=== PATIENT | female | born 1990 | race Caucasian/White ===

== ENCOUNTER → 2017-05-01 | Outpatient (CLI) | payer OTHER ==
--- NOTE | 2017-05-01 15:48 | FL ---
EXAMINATION TYPE: FL hysterosalpingography DATE OF EXAM: 05/01/2017 HISTORY: Infertility. PROCEDURE/FINDINGS: 1 minute and 56 seconds of fluoroscopy time was utilized with a total of 25 mL of Omnipaque 240 injected and 4 fluoroscopic images saved. Informed consent was obtained and all the patient's questions were answered. Preliminary film of the pelvis reveals no distinct abnormality within the pelvis with incidental note of postsurgical changes of the lumbosacral spine. Betadine was used to cleanse the external skin surface. A speculum was introduced and the external c ervical os was localize. Hysterosalpingography catheter was attempted to be introduced into the uter us and balloon insufflation device deployed although the catheter would not fully extend through the cervical canal. Attempted injection demonstrated contrast within the vaginal cuff spilling through th e cervix in a retrograde fashion on 2 occasions. Subsequently a sound dilator was used to penetrate a dhesions within the cervix and the hysterosalpingography catheter was advanced successfully through t he internal cervical os. Initially no spill was seen of either fallopian tubes after instillation of approximately 5 cc of contrast. The remaining 5 cc of contrast was injected briskly with quick fill o f the fallopian tubes bilaterally and bilateral spill into the peritoneal cavity. Both fallopian tub es are therefore patent. The uterus has a normal size shape and appearance. No persistent uterine fi lling defects are seen. IMPRESSION: A sound dilator was necessary to breakthrough adhesions and extend through the internal c ervical os with eventual bilateral spill of contrast into the peritoneal cavity indicating patency of the fallopian tubes.
== END | disposition home or self-care (01) ==
LOC: RADFLMAIN 13:28
PROVIDERS: ATTEND Obstetrics & Gynecology
DX: N97.9 Female infertility, unspecified (principal); Z88.0 Allergy status to penicillin; Z88.1 Allergy status to other antibiotic agents
CPT/HCPCS: 58340; 74740; Q9966

== ENCOUNTER 2017-12-01 19:54 | Observation (INO) | payer OTHER ==
[2017-12-01] MEDS ORDERED: IPRATROPIUM-ALBUTEROL 3 ML NEB INHALATION STA (20:38)
[2017-12-01] MEDS ORDERED: IPRATROPIUM-ALBUTEROL 3 ML NEB INHALATION PRN (20:40)
[2017-12-01] MEDS ORDERED: SODIUM CHLORIDE 0.9% 1,000 ML IV ONE (20:42)
[2017-12-01] MEDS ORDERED: SODIUM CHLORIDE 0.9% 1,000 ML IV SCH (20:45)
[2017-12-01] MEDS ORDERED: VANCOMYCIN IV PER PHARMACY 1 EACH MISC MISCELLANE PRN (20:53)
[2017-12-01] MEDS ORDERED: DOXYCYCLINE 100 MG CAP PO STA (20:58)
--- NOTE | 2017-12-01 21:03 | ED ---
General Adult HPI - General Chief complaint: Shortness of Breath Stated complaint: Sepsis, Asthma Time Seen by Provider: 12/01/17 20:25 Source: patient, EMS, RN notes reviewed, old records reviewed Mode of arrival: EMS Limitations: no limitations - History of Present Illness Initial comments: 26 female presenting for evaluation of asthma exacerbation and sepsis with lactic acidosis. Patient's complains of 4 days of URI symptoms including sore throat, cough which is productive of green sputum. She has remote history of asthma. Denies fever or chills. Denies abdominal pain. Denies lower extremity pain or swelling. She is not currently on control. She was transferred with both lactic acidosis of 5.9 and need for treatment of asthma exacerbation. Patient denies abdominal pain. Denies nausea vomiting. - Related Data Home Medications Medication Instructions Recorded Confirmed ALPRAZolam [Xanax] 0.25 mg PO DAILY PRN 12/01/17 12/01/17 Albuterol Inhaler [Ventolin Hfa 1 - 2 puff INHALATION RT-Q6H PRN 12/01/17 Inhaler] Aspirin EC [Ecotrin Low Dose] 81 mg PO HS 12/01/17 12/01/17 Cetirizine HCl [Zyrtec] 10 mg PO HS 12/01/17 12/01/17 Glucosamine/Chondr Mercer A Sod [Osteo 1 tab PO HS 12/01/17 12/01/17 Bi-Flex Caplet] Nicotine 7Mg/24Hr Patch [Habitrol 1 patch TRANSDERM DAILY 12/01/17 12/01/17 7Mg/24Hr Patch] Delmar-3 Fatty Acids [Delmar-3] 1,000 mg PO HS 12/01/17 12/01/17 metFORMIN HCL [Glucophage] 250 mg PO HS 12/01/17 12/01/17 Allergies Allergy/AdvReac Type Severity Reaction Status Date / Time ciprofloxacin [From Cipro] Allergy Rash/Hives Verified 12/01/17 20:20 Penicillins Allergy Rash/Hives Verified 12/01/17 20:20 azithromycin [From Zithromax] AdvReac Rapid Verified 12/01/17 20:20 Heart Rate Review of Systems ROS Statement: Those systems with pertinent positive or pertinent negative responses have been documented in the HPI. ROS Other: All systems not noted in ROS Statement are negative. Past Medical History Past Medical History: Asthma Additional Past Medical History / Comment(s): PCOS, MTHFR History of Any Multi-Drug Resistant Organisms: None Reported Additional Past Surgical History / Comment(s): Lumbar Fusion Past Psychological History: Anxiety, Depression Smoking Status: Current every day smoker Past Alcohol Use History: Rare Past Drug Use History: None Reported General Exam Limitations: no limitations General appearance: alert, in no apparent distress Head exam: Present: atraumatic, normocephalic Eye exam: Present: normal appearance, PERRL, EOMI ENT exam: Present: normal exam Neck exam: Present: normal inspection. Absent: tenderness, meningismus Respiratory exam: Present: respiratory distress (mild), wheezes, rhonchi, prolonged expiratory Cardiovascular Exam: Present: normal rhythm, tachycardia GI/Abdominal exam: Present: soft. Absent: distended, tenderness, guarding Extremities exam: Present: normal inspection, normal capillary refill. Absent: pedal edema, calf tenderness Neurological exam: Present: alert, oriented X3, CN II-XII intact. Absent: motor sensory deficit Skin exam: Present: warm, dry, intact. Absent: cyanosis, diaphoretic Course Vital Signs 12/01/17 12/01/17 20:06 20:23 Temperature 98.5 F Pulse Rate 112 H Respiratory 18 18 Rate Blood Pressure 121/63 O2 Sat by Pulse 98 Oximetry Medical Decision Making - Medical Decision Making 26 female with signs and symptoms of upper respiratory tract infection and asthma exacerbation transferred for further evaluation treatment of asthma exacerbation and concern for sepsis given the high lactic acidosis of 5.9. Patient's laboratory studies from outside hospital are reviewed, she has a white blood cell count of 17.9, hemoglobin stable, white lites within normal limits, urinalysis and urine tests are negative, d-dimer was 0.29 which is normal. Troponin negative. Chest x-ray was interpreted as negative, this imaging will be loaded but has not been reviewed by myself. Patient given a dose of broad-spectrum antibiotics prior to transfer. She was also given IV hydration and treatment for asthma exacerbation. She will be continued on treatment for reactive airway disease and asthma exacerbation. Laboratory studies will be repeated including lactic acidosis. She is also started on doxycycline given her multiple drug ALLERGIES. Repeat laboratory studies pending, repeat chest x-ray will be obtained in the morning. - Lab Data Result diagrams: 12/01/17 21:20 12/01/17 21:20 Lab Results 12/01/17 12/01/17 12/01/17 Range/Units 21:20 21:20 21:20 WBC 18.7 H (3.8-10.6) k/uL RBC 4.23 (3.80-5.40) m/uL Hgb 13.5 (11.4-16.0) gm/dL Hct 39.0 (34.0-46.0) % MCV 92.3 (80.0-100.0) fL MCH 31.8 (25.0-35.0) pg MCHC 34.5 (31.0-37.0) g/dL RDW 12.0 (11.5-15.5) % Plt Count 304 (150-450) k/uL Neutrophils % 97 % Lymphocytes % 2 % Monocytes % 1 % Eosinophils % 0 % Basophils % 0 % Neutrophils # 18.2 H (1.3-7.7) k/uL Lymphocytes # 0.4 L (1.0-4.8) k/uL Monocytes # 0.2 (0-1.0) k/uL Eosinophils # 0.0 (0-0.7) k/uL Basophils # 0.0 (0-0.2) k/uL Sodium 140 (137-145) mmol/L Potassium 4.3 (3.5-5.1) mmol/L Chloride 114 H (98-107) mmol/L Carbon Dioxide 16 L (22-30) mmol/L Anion Gap 10 mmol/L BUN 8 (7-17) mg/dL Creatinine 0.55 (0.52-1.04) mg/dL Est GFR (CKD-EPI)AfAm >90 (>60 ml/min/1.73 sqM) Est GFR (CKD-EPI)NonAf >90 (>60 ml/min/1.73 sqM) Glucose 130 H (74-99) mg/dL Plasma Lactic Acid Neo 1.5 (0.7-2.0) mmol/L Calcium 8.8 (8.4-10.2) mg/dL Total Bilirubin 0.5 (0.2-1.3) mg/dL AST 29 (14-36) U/L ALT 36 (9-52) U/L Alkaline Phosphatase 71 (38-126) U/L Total Protein 6.7 (6.3-8.2) g/dL Albumin 4.1 (3.5-5.0) g/dL Disposition Clinical Impression: Asthma with exacerbation, Bronchitis, Lactic acidosis, Dehydration Disposition: ADMITTED IP TO THIS [facility] Condition: Stable Is patient prescribed a controlled substance at d/c from ED?: No Referrals: Bentley Harrison MD [Primary Care Provider] - 1-2 days Decision to Admit Reason: Admit from EC Decision Date: 12/01/17 Decision Time: 21:06
[2017-12-01] MEDS ORDERED: VANCOMYCIN 1,500 MG in SODIUM CHLORIDE 0.9% 250 ML IVPB ONE (21:30)
[2017-12-01 21:32] LABS: Basophils % (A) 0 %; Eosinophils % (A) 0 %; HGB 13.5 gm/dL (11.4-16.0); Lymphocytes # (A) 0.4 k/uL (1.0-4.8); Lymphocytes % (A) 2 %; MCH 31.8 pg (25.0-35.0); MCHC 34.5 g/dL (31.0-37.0); MCV 92.3 fL (80.0-100.0); Mean Platelet Volume 6.6; Monocytes # (A) 0.2 k/uL (0-1.0); Monocytes % (A) 1 %; Neutrophils # (A) 18.2 k/uL (1.3-7.7); Neutrophils % (A) 97 %; Platelet Count 304 k/uL (150-450); RBC 4.23 m/uL (3.80-5.40); WBC 18.7 k/uL (3.8-10.6)
[2017-12-01 21:44] LABS: ALT 36 U/L (9-52); AST 29 U/L (14-36); Albumin 4.1 g/dL (3.5-5.0); Alkaline Phosphatase 71 U/L (38-126); Anion Gap 10 mmol/L; Blood Urea Nitrogen 8 mg/dL (7-17); Calcium 8.8 mg/dL (8.4-10.2); Carbon Dioxide 16 mmol/L (22-30); Chloride 114 mmol/L (98-107); Glucose 130 mg/dL (74-99); Potassium 4.3 mmol/L (3.5-5.1); Sodium 140 mmol/L (137-145); Total Bilirubin 0.5 mg/dL (0.2-1.3); Total Protein 6.7 g/dL (6.3-8.2)
[2017-12-01] MEDS: DOXYCYCLINE 100 MG CAP PO SCH (21:56)
[2017-12-01] MEDS: methylPREDNISolone SOD SUCCI 125 MG/2 ML VIAL IV SCH (23:33)
[2017-12-01 23:44] VITALS: BMI 28.3
[2017-12-02] MEDS ORDERED: ALPRAZolam 0.25 MG TAB PO PRN (02:05)
[2017-12-02] MEDS ORDERED: LORATADINE 10 MG TAB PO SCH (02:15)
[2017-12-02] MEDS ORDERED: ASPIRIN 81 MG PO SCH ×2 (02:17→21:00)
[2017-12-02] MEDS: ACETAMINOPHEN TAB 325 MG TAB PO PRN ×2 (02:22→08:29)
[2017-12-02] MEDS: guaiFENesin-DM 100-10MG/5ML 10 ML CUP PO PRN ×2 (02:23→09:11)
[2017-12-02] MEDS: methylPREDNISolone SOD SUCCI 125 MG/2 ML VIAL IV SCH ×2 (05:56→11:45)
[2017-12-02] MEDS ORDERED: VANCOMYCIN 1,500 MG in SODIUM CHLORIDE 0.9% 250 ML IVPB SCH (06:00)
[2017-12-02] MEDS: IPRATROPIUM-ALBUTEROL 3 ML NEB INHALATION SCH ×2 (06:17→10:49)
--- NOTE | 2017-12-02 08:17 | XR ---
EXAMINATION TYPE: XR chest 2V DATE OF EXAM: 12/02/2017 COMPARISON: Prior chest x-ray 12/01/2017 HISTORY: Cough TECHNIQUE: Frontal and lateral views of the chest are obtained. FINDINGS: There is no focal air space opacity, pleural effusion, or pneumothorax seen. The cardiac silhouette size is within normal limits. The osseous structures are intact. There is bronchial wall thickening. IMPRESSION: Correlate for bronchitis, reactive airways disease, follow-up as indicated.
[2017-12-02] MEDS: DOXYCYCLINE 100 MG CAP PO SCH (08:30)
[2017-12-02] MEDS ORDERED: diphenhydrAMINE 25 MG CAP PO PRN (10:57)
[2017-12-02 13:12] VITALS: BP 110/65; PULSE 115; RESP 17; TEMP 98.1
--- NOTE | 2017-12-02 14:52 | P.HPIM ---
History of Present Illness 26-year-old pleasant female came in with comments of shortness of breath and does have history of asthma diagnosed as acute does smoke about half a pack of cigarettes per day and patient the was coughing whitish to yellowish sputum patient chest x-ray did not show pneumonia patient on exam is still wheezing. It's reasonable for her to stay overnight but patient wanted to go home because of which am discharging the patient. Patient is bit tachycardic after her breathing treatments. Patient although is not short of breath upon ambulation. The main reason she was admitted is because of lactic acidosis which I believe is secondary to metformin. Lactic acidosis resolved patient is on metformin for PCOD. I recommended that she can resume metformin again and repeat lactic acid when she sees her primary doctor in about 3 days and if she has lactic acidosis again at that time metformin need to be discontinued. Patient does have asthmatic bronchitis I do not believe antibiotics will help her counseling regarding smoking cessation was provided Review of Systems REVIEW OF SYSTEMS: CONSTITUTIONAL: No fever, no malaise, no fatigue. HEENT: No recent visual problems or hearing problems. Denied any sore throat. CARDIOVASCULAR: No chest pain, orthopnea, PND, no palpitations, no syncope. PULMONARY: no hemoptysis. GASTROINTESTINAL: No diarrhea, no nausea, no vomiting, no abdominal pain. Normoactive bowel sounds. NEUROLOGICAL: No headaches, no weakness, no numbness. HEMATOLOGICAL: Denies any bleeding or petechiae. GENITOURINARY: Denies any burning micturition, frequency, or urgency. MUSCULOSKELETAL/RHEUMATOLOGICAL: Denies any joint pain, swelling, or any muscle pain. ENDOCRINE: Denies any polyuria or polydipsia. The rest of the 14-point review of systems is negative. Past Medical History Past Medical History: Asthma Additional Past Medical History / Comment(s): PCOS, MTHFR History of Any Multi-Drug Resistant Organisms: None Reported Additional Past Surgical History / Comment(s): Lumbar Fusion Past Anesthesia/Blood Transfusion Reactions: No Reported Reaction Past Psychological History: Anxiety, Depression Smoking Status: Current every day smoker Past Alcohol Use History: Rare Past Drug Use History: None Reported - Past Family History Mother Family Medical History: Coronary Artery Disease (CAD), Hyperlipidemia, Hypertension Additional Family Medical History / Comment(s): Depression Father Family Medical History: Hyperlipidemia, Hypertension Medications and Allergies Home Medications Medication Instructions Recorded Confirmed Type ALPRAZolam [Xanax] 0.25 mg PO DAILY PRN 12/01/17 12/01/17 History Albuterol Inhaler [Ventolin Hfa 1 - 2 puff INHALATION RT-Q6H PRN 12/01/17 History Inhaler] Aspirin EC [Ecotrin Low Dose] 81 mg PO HS 12/01/17 12/01/17 History Cetirizine HCl [Zyrtec] 10 mg PO HS 12/01/17 12/01/17 History Glucosamine/Chondr Mercer A Sod [Osteo 1 tab PO HS 12/01/17 12/01/17 History Bi-Flex Caplet] Nicotine 7Mg/24Hr Patch [Habitrol 1 patch TRANSDERM DAILY 12/01/17 12/01/17 History 7Mg/24Hr Patch] Odebolt-3 Fatty Acids [Odebolt-3] 1,000 mg PO HS 12/01/17 12/01/17 History metFORMIN HCL [Glucophage] 250 mg PO HS 12/01/17 12/01/17 History Nicotine 14Mg/24Hr Patch [Habitrol] 1 patch TRANSDERM DAILY #14 patch 12/02/17 Rx predniSONE 10 mg PO DAILY #30 tab 12/02/17 Rx Allergies Allergy/AdvReac Type Severity Reaction Status Date / Time ciprofloxacin [From Cipro] Allergy Rash/Hives Verified 12/01/17 20:20 Penicillins Allergy Rash/Hives Verified 12/01/17 20:20 azithromycin [From Zithromax] AdvReac Rapid Verified 12/01/17 20:20 Heart Rate Physical Exam Vitals: Vital Signs Temp Pulse Pulse Resp BP BP Pulse Ox 12/02/17 11:40 98.1 F 115 H 17 110/65 98 12/02/17 11:01 86 12/02/17 10:50 88 12/02/17 08:35 115 H 20 12/02/17 08:20 98.4 F 117 H 16 122/78 97 12/02/17 06:27 92 12/02/17 06:18 90 12/02/17 04:15 97.9 F 104 H 18 113/65 96 12/02/17 01:46 88 12/02/17 01:34 88 12/01/17 23:40 112 H 12/01/17 23:05 98.3 F 108 H 16 130/68 98 12/01/17 22:30 98.2 F 122 H 24 118/56 96 12/01/17 22:09 98 12/01/17 22:00 102 H 12/01/17 21:45 104 H 24 121/62 98 12/01/17 20:23 18 12/01/17 20:06 98.5 F 112 H 18 121/63 98 Intake and Output 12/01/17 12/02/17 12/02/17 22:59 06:59 14:59 Other: # Voids 1 1 Weight 74.843 kg 74.843 kg PHYSICAL EXAMINATION: GENERAL: The patient is alert and oriented x3, not in any acute distress. Well developed, well nourished. HEENT: Pupils are round and equally reacting to light. EOMI. No scleral icterus. No conjunctival pallor. Normocephalic, atraumatic. No pharyngeal erythema. No thyromegaly. CARDIOVASCULAR: S1 and S2 present. No murmurs, rubs, or gallops. PULMONARY: Rhonchus breath sounds with the expiratory wheezing ABDOMEN: Soft, nontender, nondistended, normoactive bowel sounds. No palpable organomegaly. MUSCULOSKELETAL: No joint swelling or deformity. EXTREMITIES: No cyanosis, clubbing, or pedal edema. NEUROLOGICAL: Gross neurological examination did not reveal any focal deficits. SKIN: No rashes. Results CBC & Chem 7: 12/01/17 21:20 12/01/17 21:20 Labs: Abnormal Lab Results - Last 24 Hours (Table) 12/01/17 12/01/17 Range/Units 21:20 21:20 WBC 18.7 H (3.8-10.6) k/uL Neutrophils # 18.2 H (1.3-7.7) k/uL Lymphocytes # 0.4 L (1.0-4.8) k/uL Chloride 114 H (98-107) mmol/L Carbon Dioxide 16 L (22-30) mmol/L Glucose 130 H (74-99) mg/dL Thrombosis Risk Factor Assmnt - Choose All That Apply Any of the Below Risk Factors Present?: No Other Risk Factors: No Thrombosis Risk Factor Assessment Level: Very Low Risk Assessment and Plan Plan: -Acute asthma exacerbation patient appears to have chronic intermittent asthma. Patient will be discharged on weaning dose of steroids and patient does have albuterol at home which she will continue. -Lactic acidosis believe is secondary to metformin, there may be some intravascular volume depletion contributing to that along with hypoxemia. Lactic acidosis resolved further management as mentioned above -Polycystic ovarian disease: Metformin will be resumed and repeat lactic acid in about 3 days -Depression
--- NOTE | 2017-12-02 14:53 | P.DS ---
Providers Date of admission: 12/01/17 20:41 Attending physician: Amaury Guadarrama Primary care physician: Bentley Harrison [facility] Course: Please refer to my HPI Patient Condition at Discharge: Stable Plan - Discharge Summary Discharge Rx Participant: No New Discharge Prescriptions: New predniSONE 10 mg PO DAILY #30 tab Nicotine 14Mg/24Hr Patch [Habitrol] 1 patch TRANSDERM DAILY #14 patch No Action Nicotine 7Mg/24Hr Patch [Habitrol 7Mg/24Hr Patch] 1 patch TRANSDERM DAILY Albuterol Inhaler [Ventolin Hfa Inhaler] 1 - 2 puff INHALATION RT-Q6H PRN PRN Reason: Shortness Of Breath Glucosamine/Chondr Mercer A Sod [Osteo Bi-Flex Caplet] 1 tab PO HS Cetirizine HCl [Zyrtec] 10 mg PO HS ALPRAZolam [Xanax] 0.25 mg PO DAILY PRN PRN Reason: Anxiety metFORMIN HCL [Glucophage] 250 mg PO HS Aspirin EC [Ecotrin Low Dose] 81 mg PO HS Sulphur-3 Fatty Acids [Sulphur-3] 1,000 mg PO HS Discharge Medication List ALPRAZolam [Xanax] 0.25 mg PO DAILY PRN 12/01/17 [History] Albuterol Inhaler [Ventolin Hfa Inhaler] 1 - 2 puff INHALATION RT-Q6H PRN [History] Aspirin EC [Ecotrin Low Dose] 81 mg PO HS 12/01/17 [History] Cetirizine HCl [Zyrtec] 10 mg PO HS 12/01/17 [History] Glucosamine/Chondr Mercer A Sod [Osteo Bi-Flex Caplet] 1 tab PO HS 12/01/17 [History ] Nicotine 7Mg/24Hr Patch [Habitrol 7Mg/24Hr Patch] 1 patch TRANSDERM DAILY [History] Sulphur-3 Fatty Acids [Sulphur-3] 1,000 mg PO HS 12/01/17 [History] metFORMIN HCL [Glucophage] 250 mg PO HS 12/01/17 [History] Nicotine 14Mg/24Hr Patch [Habitrol] 1 patch TRANSDERM DAILY #14 patch 12/02/17 [ Rx] predniSONE 10 mg PO DAILY #30 tab 12/02/17 [Rx] Follow up Appointment(s)/Referral(s): Bentley Harrison MD [Primary Care Provider] - 1-2 days Patient Instructions/Handouts: How to Stop Smoking (DC) Activity/Diet/Wound Care/Special Instructions: Have Lactic acid repeated upon recheck with Primary Physician. (metformin) Follow up Thursday Regular diet, as tolerated drink fluids to keep secretions loose. Continue updrafts at home as needed per Dr Delvalle. (last received an updraft at about 1100) received last dose of steroids at 1200 (iv) Call office or return to Emergency with return or worsening of symptoms that brought you here or any concerns. quieter activity today. Good hand washing. No smoking Discharge Disposition: HOME SELF-CARE
[2017-12-02] MEDS ORDERED: methylPREDNISolone SOD SUCCI 40 MG/ML 1 ML VIAL IV SCH (21:00)
[2017-12-03] MEDS ORDERED: VANCOMYCIN TROUGH DUE 1 EACH MISC MISCELLANE ONE (05:00)
== END 2017-12-02 14:18 | disposition home or self-care (01) ==
LOC: EC 19:54 → 6PED 20:41
PROVIDERS: ADMIT Hospitalist; ATTEND Hospitalist
DX: J45.21 Mild intermittent asthma with (acute) exacerbation (principal); E87.2 Acidosis; T38.3X5A Adverse effect of insulin and oral hypoglycemic [antidiabetic] drugs, initial encounter; E28.2 Polycystic ovarian syndrome; F41.9 Anxiety disorder, unspecified; F17.210 Nicotine dependence, cigarettes, uncomplicated; E72.12 Methylenetetrahydrofolate reductase deficiency; F32.9 Major depressive disorder, single episode, unspecified; Z79.84 Long term (current) use of oral hypoglycemic drugs; Z79.82 Long term (current) use of aspirin; Z79.899 Other long term (current) drug therapy; Z88.0 Allergy status to penicillin; Z88.1 Allergy status to other antibiotic agents; Z82.49 Family history of ischemic heart disease and other diseases of the circulatory system; Z83.49 Family history of other endocrine, nutritional and metabolic diseases; Z81.8 Family history of other mental and behavioral disorders
CPT/HCPCS: 96361; 96366 ×2; 96375; 96376; 96365; 99285; 36415; 94640 ×3; 80053; 83605; 85025; 71046; G0378 ×2; J3370 ×2; J2930 ×2

== ENCOUNTER → 2019-02-01 | Outpatient (CLI) | payer OTHER ==
--- NOTE | 2019-02-01 14:38 | US ---
EXAMINATION TYPE: US pelvic complete DATE OF EXAM: 02/01/2019 COMPARISON: NONE CLINICAL HISTORY: R10.2 PELVIC PAIN, endometriosis, DUB, breast pain TECHNIQUE: Transabdominal (TA). Date of LMP: 01/27/19 EXAM MEASUREMENTS: Uterus: 8.2 x 2.9 x 3.8 cm Endometrial Stripe: 0.5 cm Right Ovary: 2.8 x 1.8 x 1.8 cm Left Ovary: 2.1 x 1.8 x 1.8 cm 1. Uterus: Anteverted wnl 2. Endometrium: wnl 3. Right Ovary: wnl 4. Left Ovary: wnl 5. Bilateral Adnexa: wnl 6. Posterior cul-de-sac: wnl IMPRESSION: 1. No acute process.
== END | disposition home or self-care (01) ==
LOC: RADUSWWP 14:15
PROVIDERS: ATTEND Obstetrics & Gynecology
DX: R10.2 Pelvic and perineal pain (principal)
CPT/HCPCS: 76856

== ENCOUNTER 2020-11-10 08:06 | Outpatient (CLI) | payer OTHER ==
[2020-11-10 09:59] VITALS: BP 123/75; PULSE 110; RESP 16; TEMP 97.6
--- NOTE | 2020-11-10 12:10 | P.MSEPDOC ---
Presenting Problems - Arrival Data Date of Arrival on Unit: 11/10/20 Time of Arrival on Unit: 08:05 Mode of Transport: Ambulatory - Complaint OB-Reason for Admission/Chief Complaint: Vaginal Bleeding Medical History - Information : 1 Para: 0 Number of Living Children: 0 - Gestational Age Gestational Age by RAMON (wks/days): 27 Weeks and 6 Days Review of Systems - Review of Systems Constitutional: No problems Breast: No problems ENT: No problems Cardiovascular: No problems Respiratory: No problems Gastrointestinal: No problems Genitourinary: No problems Musculoskeletal: No problems Neurological: No problems Skin: No problems Vital Signs - Temperature Temperature: 97.6 F Temperature Source: Temporal Artery Scan - Pulse Right Sitting Brachial Pulse Rate: 110 Pulse Assessment Method: Automatic Cuff - Respirations Respiratory Rate: 16 Oxygen Delivery Method: Room Air O2 Sat by Pulse Oximetry: 99 - Blood Pressure Right Arm Sitting Blood Pressure: 123/75 Blood Pressure Mean: 91 Blood Pressure Source: Automatic Cuff Medical Screen Scoring - Uterine Contractions Frequency From (mins): 1 Frequency To (mins): 1 Duration From (seconds): 10 Duration To (seconds): 20 Intensity: Mild Resting: Soft to palpation - Assessment - Baby A Baseline FHR: 145 Heart Rate - NICHD Category: Category I (Normal) Physician Notification - Physician Notified Physician Notified Date: 11/10/20 Physician Notified Time: 08:30 Physician: Jody Cooley New Order Received: Yes Maternal Triage Index - Maternal Triage Index Presenting for scheduled procedure w/no complaint: No - Stat/Priority 1 Stat Priority 1: No - Urgent/Priority 2 Urgent Priority 2: Yes Provider Notified: Jody Cooley Provider Notified Time: 08:30 Criteria Met for Priority 2: vaginal bleeding after intercourse, gestation Disposition - Disposition OB Disposition: Triage Discharge Date: 11/10/20 Discharge Time: 09:35 I agree with the RN Medical Screening Exam: Yes Case reviewed; plan agreed upon as documented in EMR&OBIX.: Yes Comments: vaginal bleeding after intercourse last night. The bleeding has slowed but not stopped completely. Spec exam revealed a friable cervix. Cervix remains closed and thick. Category 1 heart tones and small cramping noted. Pt encouraged to return in her cramping intensifies or bleeding increases. advised pelvic rest. Pt sees her primary ob on Thursday (in 2 days) Diagnosis: ANTEPARTUM HEMORRHAGE W COAG DEFECT, UNSP, THIRD TRIMESTER
== END 2020-11-10 09:35 | disposition home or self-care (01) ==
LOC: FBPOP 08:06
PROVIDERS: ATTEND Obstetrics & Gynecology
DX: O46.002 Antepartum hemorrhage with coagulation defect, unspecified, second trimester (principal); Z3A.27 27 weeks gestation of pregnancy; Z88.1 Allergy status to other antibiotic agents
CPT/HCPCS: 99213

== ENCOUNTER 2020-12-27 11:03 | Outpatient (CLI) | payer OTHER ==
[2020-12-27 12:43] VITALS: BP 111/59; PULSE 79; RESP 16; TEMP 96.9
--- NOTE | 2020-12-31 08:38 | P.MSEPDOC ---
Presenting Problems - Arrival Data Date of Arrival on Unit: 12/27/20 Time of Arrival on Unit: 11:03 Mode of Transport: Ambulatory - Complaint OB-Reason for Admission/Chief Complaint: Rule Out PROM, Decreased Movement Comment: GUSH FLUID [id number] Medical History - Information : 1 Para: 0 Term: 0 : 0 Abortions: Spontaneous or Elective: 0 Number of Living Children: 0 - Gestational Age Gestational Age by RAMON (wks/days): 34 Weeks and 4 Days - History Comment: by IVF Review of Systems - Review of Systems Constitutional: No problems Breast: No problems ENT: No problems Cardiovascular: No problems Respiratory: No problems Gastrointestinal: No problems Genitourinary: No problems Musculoskeletal: No problems Neurological: No problems Skin: No problems Vital Signs - Temperature Temperature: 96.9 F Temperature Source: Temporal Artery Scan - Pulse Right Pulse Rate: 79 Pulse Assessment Method: Automatic Cuff - Respirations Respiratory Rate: 16 Oxygen Delivery Method: Room Air O2 Sat by Pulse Oximetry: 99 - Blood Pressure Right Arm Sitting Blood Pressure: 111/59 Blood Pressure Mean: 76 Blood Pressure Source: Automatic Cuff Medical Screen Scoring - Cervical Exam Dilation (cm): 0 Effacement (%): 0 Station: -3 Membranes: Intact - Uterine Contractions Frequency From (mins): 0 Frequency To (mins): 0 - Assessment - Baby A Baseline FHR: 130 Heart Rate - NICHD Category: Category I (Normal) NST: Reactive Physician Notification - Physician Notified Physician Notified Date: 12/27/20 Physician Notified Time: 12:33 Physician: Emily Grissom Order Received: Yes (dc with instruction) - Notification Comment Comment: good movement in triage Maternal Triage Index - Maternal Triage Index Presenting for scheduled procedure w/no complaint: No - Stat/Priority 1 Stat Priority 1: No - Urgent/Priority 2 Urgent Priority 2: No - Prompt/Priority 3 Prompt Priority 3: No - Non-Urgent/Priority 4 Non-Urgent Priority 4: Yes Criteria Met for Priority 4: decreased movement Disposition - Disposition OB Disposition: Triage, Discharge to home Discharge Date: 12/27/20 Discharge Time: 12:42 I agree with the RN Medical Screening Exam: Yes Case reviewed; plan agreed upon as documented in EMR&OBIX.: Yes Diagnosis: FALSE LABOR BEFORE 37 COMPLETED WEEKS OF GEST, THIRD TRI
== END 2020-12-27 12:44 ==
LOC: FBPOP 11:03
PROVIDERS: ATTEND Obstetrics & Gynecology
DX: O47.03 False labor before 37 completed weeks of gestation, third trimester (principal); O99.333 Smoking (tobacco) complicating pregnancy, third trimester; F17.200 Nicotine dependence, unspecified, uncomplicated; Z3A.34 34 weeks gestation of pregnancy; Z88.1 Allergy status to other antibiotic agents; Z88.0 Allergy status to penicillin
CPT/HCPCS: 59025; 99213

== ENCOUNTER 2021-01-10 17:20 | Inpatient (IN) | payer OTHER ==
[2021-01-10] MEDS ORDERED: DINOPROSTONE 10 MG INSERT.ER VAGINAL ONE (17:47)
--- NOTE | 2021-01-10 19:13 | P.HPOB ---
History of Present Illness H&P Date: 01/10/21 Chief Complaint: Oligohydramnios This is a 30-year-old female 1 para 0 at 36-4/7 weeks who was seen at maternal medicine today and found to have an LETI of 4 cm and she was confirmed to not be ruptured. They did give her 1 dose of Celestone at 2:30 PM today and recommended another dose at 24 hours if she is not delivered. They have recommended delivery due to the oligohydramnios. Patient states that the baby was in a vertex position and weighed about 6 lbs. 6 oz. today on ultrasound. The patient has been following with maternal medicine due to uterine fibroids and history of IVF. labs: Hepatitis B surface antigen-negative RPR-nonreactive Rubella-immune Blood type-O+ Antibody screen-negative HIV-nonreactive Hemoglobin-13 Random glucose-82 Group B streptococcus-negative Obstetrical history: Gynecologic history: No history of sexual transmitted diseases Social history: She is . She works full-time as an MA. Review of Systems Constitutional: Denies chills, Denies fever Eyes: denies blurred vision, denies pain Ears, nose, mouth and throat: Denies headache, Denies sore throat Cardiovascular: Denies chest pain, Denies shortness of breath Respiratory: Denies cough Gastrointestinal: Denies abdominal pain, Denies diarrhea, Denies nausea, Denies vomiting Genitourinary: Reports dysuria, Reports pelvic pain, Reports Musculoskeletal: Reports low back pain Integumentary: Denies pruritus, Denies rash Neurological: Denies numbness, Denies weakness Psychiatric: Reports anxiety, Denies depression Past Medical History Past Medical History: Asthma, GERD/Reflux Additional Past Medical History / Comment(s): PCOS, MTHFR, endometriosis History of Any Multi-Drug Resistant Organisms: None Reported Additional Past Surgical History / Comment(s): Lumbar Fusion Past Anesthesia/Blood Transfusion Reactions: No Reported Reaction Past Psychological History: ADD/ADHD, Anxiety Smoking Status: Never smoker Past Alcohol Use History: None Reported Past Drug Use History: None Reported - Past Family History Mother Family Medical History: Coronary Artery Disease (CAD), Hyperlipidemia, Hypertension Additional Family Medical History / Comment(s): Depression Father Family Medical History: Hyperlipidemia, Hypertension Medications and Allergies Home Medications Medication Instructions Recorded Confirmed Type Albuterol Sulfate [Proair 1 puff INHALATION Q6H PRN 11/10/20 12/27/20 History Digihaler] Cetirizine HCl [Zyrtec] 10 mg PO DAILY 11/10/20 12/27/20 History Famotidine [Pepcid] 20 mg PO DAILY 11/10/20 12/27/20 History Pnv,Calcium 72/Iron/Folic Acid 1 each PO DAILY 11/10/20 12/27/20 History [ Plus Tablet] Allergies Allergy/AdvReac Type Severity Reaction Status Date / Time ciprofloxacin [From Cipro] Allergy Rash/Hives Verified 12/27/20 11:23 Penicillins Allergy Rash/Hives Verified 12/27/20 11:23 azithromycin [From Zithromax] AdvReac Rapid Verified 12/27/20 11:23 Heart Rate Exam Osteopathic Statement: *. No significant issues noted on an osteopathic structural exam other than those noted in the History and Physical/Consult. Intake and Output 01/10/21 01/10/21 01/10/21 06:59 14:59 22:59 Other: Weight 93.894 kg HEENT: Within normal limits Heart: Regular rate and rhythm Lungs: Clear to auscultation bilaterally Abdomen: Cervix: Closed/70%/-2 station heart tones: Category 1, reactive Contractions: Irregular Extremities: Negative Homans Assessment and Plan (1) 36 weeks gestation of Current Visit: Yes Status: Acute Code(s): Z3A.36 - SNOMED Code(s): 10933457 (2) Oligohydramnios Current Visit: Yes Status: Acute Code(s): O41.00X0 - OLIGOHYDRAMNIOS, UNSP TRIMESTER, NOT APPLICABLE OR UNSP SNOMED Code(s): 46231264 Plan: Admission for Cervidil cervical ripening followed by oxytocin induction of labor due to oligohydramnios. Will give second dose of Celestone and 1430 tomorrow if undelivered. Expectant management. Process explained to patient and her family and all her questions are answered. She will be followed by Dr. Damaso claudio and Dr. Cooley tomorrow.
[2021-01-10] MEDS ORDERED: METHYLERGONOVINE 0.2 MG/ML 1 ML AMP IM PRN (19:54)
[2021-01-10] MEDS ORDERED: OXYTOCIN 10 UNIT/ML 1 ML VIAL IM PRN (19:54)
[2021-01-10] MEDS ORDERED: CARBOPROST TROMETHAMINE 250 MCG/ML 1 ML AMP IM PRN (19:54)
[2021-01-10] MEDS ORDERED: OXYTOCIN 30 UNITS/500 ML NS 30 UNIT in SALINE 1 500ML.BAG IV SCH (19:54)
[2021-01-10] MEDS ORDERED: TERBUTALINE 1 MG/ML VIAL SQ PRN (19:54)
[2021-01-10] MEDS ORDERED: LIDOCAINE 0.5% (PF) 5 MG/ML (50 ML SDV) SQ PRN (19:54)
[2021-01-10] MEDS ORDERED: LIDOCAINE 1% (10MG/ML) FOR IV START INTRADERMA PRN (19:54)
[2021-01-11] MEDS: LACTATED RINGERS 1,000 ML IV SCH ×4 (04:39→15:26)
[2021-01-11 06:54] LABS: Basophils % (A) 0 %; Eosinophils % (A) 0 %; HCT 33.3 % (34.0-46.0); Hyperchromasia Slight; Lymphocytes # (A) 1.2 k/uL (1.0-4.8); Lymphocytes % (A) 8 %; MCH 33.6 pg (25.0-35.0); MCHC 35.9 g/dL (31.0-37.0); MCV 93.8 fL (80.0-100.0); Mean Platelet Volume 7.5; Monocytes # (A) 0.6 k/uL (0-1.0); Monocytes % (A) 4 %; Neutrophils # (A) 14.1 k/uL (1.3-7.7); Neutrophils % (A) 87 %; Platelet Count 277 k/uL (150-450); RBC 3.55 m/uL (3.80-5.40); RDW 13.9 % (11.5-15.5); WBC 16.2 k/uL (3.8-10.6)
[2021-01-11] MEDS: BUTORPHANOL 1 MG/ML 1 ML VIAL IV PRN ×2 (08:33→10:27)
[2021-01-11] MEDS ORDERED: ROPIVACAINE 5MG/ML 20ML VIAL ONE (11:22)
[2021-01-11] MEDS ORDERED: fentaNYL (PF) 50 MCG/ML 5 ML AMP ONE (11:22)
[2021-01-11] MEDS ORDERED: SODIUM CHLORIDE 0.9% 100 ML BAG ONE (11:22)
[2021-01-11] MEDS ORDERED: BETAMET ACET-BETAMETH SOD PHOS 6 MG/ML MDV IM SCH (14:30)
[2021-01-11] MEDS ORDERED: FAMOTIDINE 20 MG TAB PO STA (15:43)
[2021-01-11] MEDS ORDERED: CALCIUM CARBONATE 500 MG CHEWABLE PO PRN (15:44)
[2021-01-11] MEDS ORDERED: FAMOTIDINE 20 MG/2 ML VIAL IV ONE (15:50)
[2021-01-11] MEDS ORDERED: diphenhydrAMINE 25 MG CAP PO PRN (18:06)
[2021-01-11] MEDS ORDERED: diphenhydrAMINE 50 MG/ML 1 ML VIAL IVP PRN ×2 (18:06)
[2021-01-11] MEDS ORDERED: ACETAMINOPHEN ORAL SUSP 160 MG/5 ML CUP PO PRN (18:06)
[2021-01-11] MEDS ORDERED: HYDROCORTISONE 2.5% RECTAL CREAM 30 GM TUBE RECTAL PRN (18:06)
[2021-01-11] MEDS ORDERED: LANOLIN CREAM 5 GM TUBE TOPICAL PRN (18:06)
[2021-01-11] MEDS ORDERED: ZOLPIDEM 5 MG TAB PO PRN (18:06)
[2021-01-11] MEDS ORDERED: diphenhydrAMINE 50 MG CAP PO PRN (18:06)
[2021-01-11] MEDS ORDERED: BENZOCAINE/MENTHOL SPRAY 1 GM/SPRAY AEROSOL TOPICAL PRN (18:06)
[2021-01-11] MEDS ORDERED: SIMETHICONE 80 MG CHEWABLE PO PRN (18:06)
--- NOTE | 2021-01-11 18:06 | P.PROBDLV ---
Vaginal Delivery Note - . Vaginal Delivery Note: This is a 30-year-old female 1 para 0 at 36-4/7 weeks who was seen at maternal medicine yesterday and found to have an LETI of 4 cm and she was confirmed to not be ruptured. They had recommended delivery due to the oligohydramnios. Patient states that the baby was in a vertex position and weighed about 6 lbs. 6 oz. on ultrasound. The patient has been following with maternal medicine due to uterine fibroids and history of IVF. Her cervix was closed, 70% effaced, -2 station. She is not gurinder. heart tones 140 with moderate variability and reactive. Cervidil was placed by Dr. Grissom and in the morning her cervix was 1 cm dilated, 70% effaced, and -1 station. She is gurinder every 2-5 minutes. heart tones 140 with moderate variability and reactive and Pitocin augmentation was started. Amniotomy performed at 7:24 AM and clear fluid noted. Patient progressed throughout the day and did get an epidural when she was uncomfortable. Her cervix was completely dilated around 1700. She pushed, delivered a viable male infant over intact perineum under epidural anesthesia at 1747. Head delivered OA, nuchal cord 2 easily reduced, anterior shoulder delivered gentle downward guidance followed by posterior shoulder and rest of body. Nose and mouth bulb suctioned, cord clamped and cut, placed mother's abdomen. Apgars 8, 9, weight 6 lbs. 5 oz. Placenta delivered spontaneously, intact with three-vessel cord at 1750. Vagina, cervix, and perineum were inspected. First-degree midline laceration was repaired with 3-0 Vicryl. Estimated blood loss 200 mL. Mother and baby in stable condition.
[2021-01-11] MEDS ORDERED: OXYTOCIN 30 UNITS/500 ML NS 30 UNIT in SALINE 1 500ML.BAG IV SCH (18:15)
[2021-01-11] MEDS: IBUPROFEN 600 MG TAB PO PRN (20:39)
[2021-01-11] MEDS: SENNOSIDES-DOCUSATE SODIUM 1 EACH TAB PO SCH (21:34)
[2021-01-12] MEDS: SENNOSIDES-DOCUSATE SODIUM 1 EACH TAB PO SCH ×2 (04:39→19:54)
[2021-01-12] MEDS: IBUPROFEN 600 MG TAB PO PRN ×3 (04:39→19:54)
[2021-01-12 08:10] LABS: Basophils % (A) 0 %; Eosinophils % (A) 0 %; HCT 28.4 % (34.0-46.0); Lymphocytes # (A) 1.5 k/uL (1.0-4.8); Lymphocytes % (A) 7 %; MCH 33.2 pg (25.0-35.0); MCV 94.8 fL (80.0-100.0); Mean Platelet Volume 7.3; Monocytes # (A) 0.7 k/uL (0-1.0); Monocytes % (A) 4 %; Neutrophils # (A) 18.6 k/uL (1.3-7.7); Neutrophils % (A) 88 %; Platelet Count 287 k/uL (150-450); RBC 2.99 m/uL (3.80-5.40); RDW 14.1 % (11.5-15.5); WBC 21.1 k/uL (3.8-10.6)
[2021-01-12 08:14] LABS: HGB 9.9 gm/dL (11.4-16.0)
[2021-01-12] MEDS: ACETAMINOPHEN TAB 325 MG TAB PO PRN ×2 (08:42→08:44)
--- NOTE | 2021-01-12 09:03 | P.PNOBGVD ---
Subjective - Subjective Principal diagnosis: S/P NVD PPD #1 Interval history: Patient seen and examined. Denies nausea, vomiting, chest pain, shortness of breath or any calf pain. Patient reports: Reports appetite normal, Reports voiding normally, Reports pain well controlled, Reports ambulating normally : doing well Objective - Latest Vital Signs Latest vital signs: Vital Signs Temp Pulse Resp BP Pulse Ox 01/12/21 08:00 98.1 F 68 14 108/63 01/12/21 04:00 98.3 F 89 16 112/74 99 01/11/21 23:55 98.0 F 94 18 129/68 99 01/11/21 19:50 97.1 F L 88 16 110/54 01/11/21 19:20 99.1 F 97 16 123/61 01/11/21 18:50 84 16 108/55 01/11/21 18:35 98.5 F 85 16 128/67 01/11/21 18:20 103 H 16 118/55 01/11/21 18:05 114 H 16 137/85 01/11/21 17:50 98.8 F 107 H 16 132/58 Intake and Output 01/11/21 01/12/21 01/12/21 22:59 06:59 14:59 Intake Total 11.567 Output Total 400 Balance -388.433 Intake: Intake, IV Titration 11.567 Amount Oxytocin 30 Units/500 ml 11.567 Ns 30 unit In Saline 1 500ml.bag @ Per Protocol IV .Q0M [facility] Rx#:[id number] Output: Urine 200 Estimated Blood Loss 200 Other: # Voids 1 1 - Exam Lungs: bilateral: normal Chest: Normal S1, Normal S2 Extremities: Present: normal Abdomen: Present: normal appearance, soft Uterus: Present: normal, firm - Labs Labs: Abnormal Lab Results - Last 24 Hours (Table) 01/12/21 Range/Units 07:13 WBC 21.1 H (3.8-10.6) k/uL RBC 2.99 L (3.80-5.40) m/uL Hgb 9.9 L D (11.4-16.0) gm/dL Hct 28.4 L (34.0-46.0) % Neutrophils # 18.6 H (1.3-7.7) k/uL Assessment and Plan (1) Status post normal vaginal delivery Current Visit: Yes Status: Acute Code(s): QJK4804 - SNOMED Code(s): 27 4244488 Plan: 1. Continue care
[2021-01-12 18:50] VITALS: RESP 16
[2021-01-13] MEDS: IBUPROFEN 600 MG TAB PO PRN (04:16)
[2021-01-13] MEDS: SENNOSIDES-DOCUSATE SODIUM 1 EACH TAB PO SCH (08:07)
--- NOTE | 2021-01-13 10:41 | P.DS ---
Providers Date of admission: 01/10/21 17:20 Expected date of discharge: 01/13/21 Attending physician: Emily Grissom Primary care physician: Stated None - Discharge Diagnosis(es) (1) Status post normal vaginal delivery Current Visit: Yes Status: Acute Hospital Course: Patient presented for induction of labor due to oligohydramnios. She underwent a normal vaginal delivery. course was uncomplicated. She denies nausea, vomiting, chest pain, shortness of breath or any calf pain. Her lochia is decreasing. Patient will be discharged home day #2 in stable condition to follow-up with Dr. Grissom in 6 weeks. Plan - Discharge Summary New Discharge Prescriptions: New Ibuprofen [Motrin] 600 mg PO Q6HR PRN #30 tab PRN Reason: Mild Pain (Scale 1 To 3) No Action Albuterol Sulfate [Proair Digihaler] 1 puff INHALATION Q6H PRN PRN Reason: Wheezing Pnv,Calcium 72/Iron/Folic Acid [ Plus Tablet] 1 each PO DAILY Famotidine [Pepcid] 20 mg PO DAILY Cetirizine HCl [Zyrtec] 10 mg PO DAILY Discharge Medication List Albuterol Sulfate [Proair Digihaler] 1 puff INHALATION Q6H PRN 11/10/20 [History] Cetirizine HCl [Zyrtec] 10 mg PO DAILY 11/10/20 [History] Famotidine [Pepcid] 20 mg PO DAILY 11/10/20 [History] Pnv,Calcium 72/Iron/Folic Acid [ Plus Tablet] 1 each PO DAILY 11/10/20 [History] Ibuprofen [Motrin] 600 mg PO Q6HR PRN #30 tab 01/13/21 [Rx] Follow up Appointment(s)/Referral(s): Emily Grissom DO [Doctor of Osteopathic Medicine] - 02/20/21 11:30 am Discharge Disposition: HOME SELF-CARE
[2021-01-13 16:28] VITALS: BP 124/71; PULSE 72; TEMP 98.3
== END 2021-01-13 17:30 | disposition home or self-care (01) | DRG 807 ==
LOC: 4FBP 17:20
PROVIDERS: ADMIT Obstetrics & Gynecology; ATTEND Obstetrics & Gynecology
PROC: 10E0XZZ Delivery of Products of Conception, External Approach (ICD-10-PCS; principal; 2021-01-11)
PROC: 0HQ9XZZ Repair Perineum Skin, External Approach (ICD-10-PCS; 2021-01-11)
DX: O41.03X0 Oligohydramnios, third trimester, not applicable or unspecified (principal); Z37.0 Single live birth; O69.81X0 Labor and delivery complicated by cord around neck, without compression, not applicable or unspecified; O70.0 First degree perineal laceration during delivery; O99.52 Diseases of the respiratory system complicating childbirth; O34.13 Maternal care for benign tumor of corpus uteri, third trimester; J45.909 Unspecified asthma, uncomplicated; Z3A.36 36 weeks gestation of pregnancy; Z81.8 Family history of other mental and behavioral disorders; Z82.49 Family history of ischemic heart disease and other diseases of the circulatory system
CPT/HCPCS: 85025; 86850; 86900; 86901

== ENCOUNTER → 2022-05-16 | Outpatient (CLI) | payer OTHER | LOC: NEUROMAIN 08:04 | PROVIDERS: ATTEND Psychiatry & Neurology Neurology | DX: H53.9 Unspecified visual disturbance (principal); Z88.1 Allergy status to other antibiotic agents; F17.200 Nicotine dependence, unspecified, uncomplicated | CPT/HCPCS: 95816 ==

== ENCOUNTER 2022-08-07 19:53 | Emergency (ER) | payer OTHER ==
[2022-08-07 19:57] VITALS: BP 110/73; PULSE 88; RESP 18; TEMP 97.8
[2022-08-07 21:01] LABS: Basophils % (A) 0 %; Eosinophils # (A) 0.1 k/uL (0-0.7); Eosinophils % (A) 1 %; HCT 34.1 % (34.0-46.0); HGB 11.9 gm/dL (11.4-16.0); Lymphocytes # (A) 2.3 k/uL (1.0-4.8); Lymphocytes % (A) 20 %; MCH 32.9 pg (25.0-35.0); MCHC 34.9 g/dL (31.0-37.0); MCV 94.1 fL (80.0-100.0); Mean Platelet Volume 7.3; Monocytes # (A) 0.5 k/uL (0-1.0); Monocytes % (A) 4 %; Neutrophils # (A) 8.5 k/uL (1.3-7.7); Neutrophils % (A) 73 %; Platelet Count 244 k/uL (150-450); RBC 3.63 m/uL (3.80-5.40); RDW 13.2 % (11.5-15.5); WBC 11.6 k/uL (3.8-10.6)
[2022-08-07 21:16] LABS: ALT 18 U/L (4-34); AST 20 U/L (14-36); African American GFR (CKD) >90 (>60 ml/min/1.73 sqM); Albumin 3.7 g/dL (3.5-5.0); Alkaline Phosphatase 88 U/L (38-126); Anion Gap 7 mmol/L; Blood Urea Nitrogen 4 mg/dL (7-17); Calcium 9.1 mg/dL (8.4-10.2); Carbon Dioxide 21 mmol/L (22-30); Chloride 108 mmol/L (98-107); Glucose 91 mg/dL (74-99); Non-African American GFR(CKD) >90 (>60 ml/min/1.73 sqM); Potassium 4.3 mmol/L (3.5-5.1); Sodium 136 mmol/L (137-145); Total Bilirubin 0.3 mg/dL (0.2-1.3); Total Protein 6.3 g/dL (6.3-8.2)
[2022-08-07 22:09] LABS: Erythrocyte Sedimentation Rate 15 mm/hr (0-20)
--- NOTE | 2022-08-07 22:46 | ED ---
Eye Problem HPI - General Chief complaint: Eye Problems Stated complaint: Vision changes, 23 wks Time Seen by Provider: 08/07/22 20:24 Source: patient Mode of arrival: ambulatory Limitations: no limitations - History of Present Illness Initial comments: Patient is a 31-year-old female currently 23 weeks presenting with chief complaint of blurred vision. Patient states that for the last 3 weeks she has noted pulsatile portions of her vision that sink up with her pulse. is only encompasses a portion of her visual field. patient admits to a headache and recurrent, states that she has a history of migraines and this is consistent with her regular migraines, pain is located primarily in the frontal region. No eye pain. No eye redness, discharge, watering, foreign body sensation. No abdominal pain or vaginal bleeding. No chest pain, difficulty breathing, nausea, vomiting, palpitations, weakness, numbness, tingling. Patient was evaluated by OB triage prior to presentation and cleared from OB standpoint. Patient currently follows with the neurologist as several months ago she was experiencing flashes and floaters, she had a normal EEG and will be receiving an MRI after she delivers. - Related Data Home Medications Medication Instructions Recorded Confirmed Vit No.180/Iron/Folic 1 each PO DAILY 11/10/20 12/27/20 [ Plus Tablet] Allergies Allergy/AdvReac Type Severity Reaction Status Date / Time ciprofloxacin [From Cipro] Allergy Rash/Hives Verified 08/07/22 20:46 azithromycin [From Zithromax] AdvReac Rapid Verified 08/07/22 20:46 Heart Rate Review of Systems ROS Statement: Those systems with pertinent positive or pertinent negative responses have been documented in the HPI. ROS Other: All systems not noted in ROS Statement are negative. Past Medical History Past Medical History: Asthma, GERD/Reflux Additional Past Medical History / Comment(s): PCOS, MTHFR, endometriosis History of Any Multi-Drug Resistant Organisms: None Reported Additional Past Surgical History / Comment(s): Lumbar Fusion Past Anesthesia/Blood Transfusion Reactions: No Reported Reaction Past Psychological History: ADD/ADHD, Anxiety, Depression Smoking Status: Never smoker Past Alcohol Use History: None Reported Past Drug Use History: None Reported - Past Family History Mother Family Medical History: Coronary Artery Disease (CAD), Hyperlipidemia, Hypertension Additional Family Medical History / Comment(s): Depression Father Family Medical History: Hyperlipidemia, Hypertension General Exam Limitations: no limitations General appearance: alert, in no apparent distress Head exam: Present: atraumatic, normocephalic, normal inspection Eye exam: Present: normal appearance, PERRL, EOMI. Absent: scleral icterus, periorbital swelling Pupils: Present: normal accommodation Expanded Eyelids: Normal Inspection: Bilateral Pupils: Regular, Round: Bilateral, Reactive: Bilateral Sclera/Conjunctival: Normal Inspection: Bilateral IOP (R) in mmH IOP (L) in mmH Neck exam: Present: normal inspection, full ROM Respiratory exam: Present: normal lung sounds bilaterally. Absent: respiratory distress, wheezes, rales, rhonchi, stridor Cardiovascular Exam: Present: regular rate, normal rhythm, normal heart sounds. Absent: systolic murmur, diastolic murmur, rubs, gallop, clicks Neurological exam: Present: alert, oriented X3, CN II-XII intact Expanded Patient oriented to: Present: person, place, time Speech: Present: fluid speech Eye Response: (4) open spontaneously Motor Response: (6) obeys commands Verbal Response: (5) oriented Chery Total: 15 Psychiatric exam: Present: normal affect, normal mood Skin exam: Present: warm, dry, intact, normal color. Absent: rash Course Vital Signs 08/07/22 19:54 Temperature 97.8 F Pulse Rate 88 Respiratory 18 Rate Blood Pressure 110/73 O2 Sat by Pulse 100 Oximetry Medical Decision Making - Medical Decision Making Was pt. sent in by a medical professional or institution (, PA, MORTGAGE CONSULTANT, urgent care, hospital, or alf...) When possible be specific @ -Patient was first seen by our OB triage who cleared her from an OB standpoi nt and sent her to the ER for further evaluation Did you speak to anyone other than the patient for history (EMS, parent, family, police, friend...)? What history was obtained from this source @ -No Did you review nursing and triage notes (agree or disagree)? Why? @ -I reviewed and agree with nursing and triage notes Were old charts reviewed (outside hosp., previous admission, EMS record, old EKG, old radiological studies, urgent care reports/EKG's, alf records)? Report findings @ -No old charts were reviewed Differential Diagnosis (chest pain, altered mental status, abdominal pain women, abdominal pain men, vaginal bleeding, weakness, fever, dyspnea, syncope, headache, dizziness, GI bleed, back pain, seizure, CVA, palpatations, mental health, musculoskeletal)? @ -MDM Differential Headache: Migraine, tension, cluster, carbon monoxide, central venous thrombosis, pension karma temporal arteritis, acute closure glaucoma, intercranial hemorrhage, mastoiditis, sinusitis, head injury this is not meant to be an all-inclusive list. EKG interpreted by me (3pts min.). @ -As above X-rays interpreted by me (1pt min.). @ -None done CT interpreted by me (1pt min.). @ -None done U/S interpreted by me (1pt. min.). @ -None done What testing was considered but not performed or refused? (CT, X-rays, U/S, labs)? Why? @ -CT was considered but given the patient's stable findings and was not performed What meds were considered but not given or refused? Why? @ -None Did you discuss the management of the patient with other professionals (professionals i.e. , PA, MORTGAGE CONSULTANT, lab, RT, psych nurse, social worker health services, survey research analyst, teacher, commissioned security officer, hospice case manager)? Give summary @ -No Was smoking cessation discussed for >3mins.? @ -No Was critical care preformed (if so, how long)? @ -No Were there social determinants of health that impacted care today? How? (Homelessness, low income, unemployed, alcoholism, drug addiction, transportation, low edu. Level, literacy, decrease access to med. care, correction, rehab)? @ -No Was there de-escalation of care discussed even if they declined (Discuss DNR or withdrawal of care, Hospice)? DNR status @ -No What co-morbidities impacted this encounter? (DM, HTN, Smoking, COPD, CAD, Cancer, CVA, ARF, Chemo, Hep., AIDS, mental health diagnosis, sleep apnea, morbid obesity)? @ -None Was patient admitted / discharged? Hospital course, mention meds given and route, prescriptions, significant lab abnormalities, going to OR and other pertinent info. @ -31-year-old female presenting with chief complaint of pulsatile vision ongoing for the last 3 weeks. Patient is a currently 23 weeks . She was evaluated by OB triage and cleared for evaluation in our ER prior to presentation. On physical examination there are no focal neurological deficits. Heart and lungs are clear to auscultation. Lab work shows WBC 11.6, likely secondary to . ESR is WNL. Intraocular pressures are WNL bilaterally. I discussed today's findings with the patient. I instructed her to follow up with her neurologist and special deputy sheriff her previously scheduled appointments. Follow-up with PCP and OB as well. Report back to ER with any new or worsening symptoms. Discussed return parameters and answered all questions. Patient conveyed verbal understanding and agreed to the plan. I discussed this case in detail with my attending Dr. Bae Undiagnosed new problem with uncertain prognosis? @ -No Drug Therapy requiring intensive monitoring for toxicity (Heparin, Nitro, Insulin, Cardizem)? @ -No Were any procedures done? @ -No Diagnosis/symptom? @ -Blurry vision Acute, or Chronic, or Acute on Chronic? @ -Acute Uncomplicated (without systemic symptoms) or Complicated (systemic symptoms)? @ -Uncomplicated Side effects of treatment? @ -No Exacerbation, Progression, or Severe Exacerbation? @ -No Poses a threat to life or bodily function? How? (Chest pain, [place], [place], pneumonia, PE, COPD, DKA, ARF, appy, cholecystitis, CVA, Diverticulitis, Homicidal, Suicidal, threat to staff... and all critical care pts) @ -Low likelihood - Lab Data Result diagrams: 08/07/22 20:48 08/07/22 20:48 Lab Results 08/07/22 08/07/22 Range/Units 20:48 20:48 WBC 11.6 H (3.8-10.6) k/uL RBC 3.63 L (3.80-5.40) m/uL Hgb 11.9 (11.4-16.0) gm/dL Hct 34.1 (34.0-46.0) % MCV 94.1 (80.0-100.0) fL MCH 32.9 (25.0-35.0) pg MCHC 34.9 (31.0-37.0) g/dL RDW 13.2 (11.5-15.5) % Plt Count 244 (150-450) k/uL MPV 7.3 Neutrophils % 73 % Lymphocytes % 20 % Monocytes % 4 % Eosinophils % 1 % Basophils % 0 % Neutrophils # 8.5 H (1.3-7.7) k/uL Lymphocytes # 2.3 (1.0-4.8) k/uL Monocytes # 0.5 (0-1.0) k/uL Eosinophils # 0.1 (0-0.7) k/uL Basophils # 0.0 (0-0.2) k/uL ESR 15 (0-20) mm/hr Sodium 136 L (137-145) mmol/L Potassium 4.3 (3.5-5.1) mmol/L Chloride 108 H (98-107) mmol/L Carbon Dioxide 21 L (22-30) mmol/L Anion Gap 7 mmol/L BUN 4 L (7-17) mg/dL Creatinine 0.40 L (0.52-1.04) mg/dL Est GFR (CKD-EPI)AfAm >90 (>60 ml/min/1.73 sqM) Est GFR (CKD-EPI)NonAf >90 (>60 ml/min/1.73 sqM) Glucose 91 (74-99) mg/dL Calcium 9.1 (8.4-10.2) mg/dL Total Bilirubin 0.3 (0.2-1.3) mg/dL AST 20 (14-36) U/L ALT 18 (4-34) U/L Alkaline Phosphatase 88 (38-126) U/L Total Protein 6.3 (6.3-8.2) g/dL Albumin 3.7 (3.5-5.0) g/dL Disposition Clinical Impression: Blurred vision Disposition: HOME SELF-CARE Condition: Good Instructions (If sedation given, give patient instructions): Blurred Vision (ED) Additional Instructions: Follow-up with your PCP, neurologist, and special deputy sheriff. Report back to ER with any new or worsening symptoms. Is patient prescribed a controlled substance at d/c from ED?: No Referrals: Bentley Harrison MD [Primary Care Provider] - 1-2 days Time of Disposition: 22:45
== END 2022-08-07 23:17 | disposition home or self-care (01) ==
LOC: EC 19:53
DX: O99.892 Other specified diseases and conditions complicating childbirth (principal); H53.8 Other visual disturbances; O99.512 Diseases of the respiratory system complicating pregnancy, second trimester; J45.909 Unspecified asthma, uncomplicated; O99.352 Diseases of the nervous system complicating pregnancy, second trimester; F90.9 Attention-deficit hyperactivity disorder, unspecified type; F41.9 Anxiety disorder, unspecified; F32.A Depression, unspecified; Z79.899 Other long term (current) drug therapy; Z88.1 Allergy status to other antibiotic agents; Z88.6 Allergy status to analgesic agent
CPT/HCPCS: 36415; 80053; 85025; 85652; 99283

== ENCOUNTER → 2022-08-07 | Outpatient (CLI) | payer OTHER ==
[2022-08-07 21:05] VITALS: BP 123/63; PULSE 84; RESP 15; TEMP 97.5
--- NOTE | 2022-08-07 21:31 | P.MSEPDOC ---
Presenting Problems - Arrival Data Date of Arrival on Unit: 08/07/22 Time of Arrival on Unit: 19:43 Mode of Transport: Ambulatory - Complaint OB-Reason for Admission/Chief Complaint: Visual Disturbances Comment: Patient stated that when she is experiencing vision changes that started in the fall. Patient states that she sees a neurologist and an opthamologist for vision changes. Patient spoke with Dr. Grissom earlier on phone and was told to go ER. RN spoke with Dr. Grissom and Dr. Grissom ordered vitals on patient if WNL she can return to ER. Patient assessed in our FBP triage and requires an ER triage assessment for presenting symptoms. Patient taken by wheelchair to ER triage and report given to triage Jackie LORENZ Medical History - Information : 2 Para: 1 Term: 0 : 0 Abortions: Spontaneous or Elective: 0 Number of Living Children: 1 - Gestational Age Gestational Age by RAMON (wks/days): 23 Weeks and 1 Days - History Comment: Patient denies pregnacy complications other thatn vision changes that started in the fall. Review of Systems - Review of Systems Constitutional: No problems Breast: No problems ENT: No problems Cardiovascular: No problems Respiratory: No problems Gastrointestinal: No problems Genitourinary: No problems Musculoskeletal: No problems Neurological: No problems Skin: No problems Vital Signs - Temperature Temperature: 97.5 F Temperature Source: Temporal Artery Scan - Pulse Pulse Oximetery Pulse Rate: 84 Pulse Assessment Method: Pulse Oximetry - Respirations Respiratory Rate: 15 Oxygen Delivery Method: Room Air O2 Sat by Pulse Oximetry: 99 - Blood Pressure Right Arm Blood Pressure: 123/63 Blood Pressure Mean: 83 Blood Pressure Source: Automatic Cuff Medical Screen Scoring - Assessment - Baby A Baseline FHR: 144 Physician Notification - Physician Notified Physician Notified Date: 08/07/22 Physician Notified Time: 19:45 Physician: Emily Grissom Order Received: Yes - Notification Comment Comment: atient stated that when she is experiencing vision changes that started in the fall. Patient states that she sees a neurologist and an opthamologist for vision changes. Patient spoke with Dr. Grissom earlier on phone and was told to go ER. RN spoke with Dr. Grissom and Dr. Grissom ordered vitals on patient if WNL she can return to ER. Patient assessed in our FBP triage and requires an ER triage assessment for presenting symptoms. Patient taken by wheelchair to ER triage and report given to triage Jackie LORENZ Maternal Triage Index - Non-Urgent/Priority 4 Non-Urgent Priority 4: Yes Criteria Met for Priority 4: Patient stated that when she is experiencing vision changes that started in the fall of 2021. Patient states that she sees a n eurologist and an opthamologist for vision changes. Patient spoke with Dr. Grissom earlier on phone and was told to go ER. RN spoke with Dr. Grissom and Dr. Grissom ordered vitals on patient if WNL she can return to ER. Patient assessed in our FBP triage and requires an ER triage assessment for presenting symptoms. Patient taken by wheelchair to ER triage and report given to triage Jackie LORENZ Disposition - Disposition OB Disposition: Transfer to other dept./facility Transferred to:: ER Discharge Date: 08/07/22 Discharge Time: 19:50 I agree with the RN Medical Screening Exam: Yes Case reviewed; plan agreed upon as documented in EMR&OBIX.: Yes Diagnosis: OTHER VISUAL DISTURBANCES
== END ==
LOC: FBPOP 19:43
PROVIDERS: ATTEND Obstetrics & Gynecology
DX: O26.893 Other specified pregnancy related conditions, third trimester (principal); H53.8 Other visual disturbances; Z88.1 Allergy status to other antibiotic agents; F17.200 Nicotine dependence, unspecified, uncomplicated; Z3A.34 34 weeks gestation of pregnancy
CPT/HCPCS: 99213

== ENCOUNTER 2022-10-15 18:10 | Outpatient (CLI) | payer OTHER ==
[2022-10-15 19:12] VITALS: BP 122/69; PULSE 93; RESP 16; TEMP 96.7
--- NOTE | 2022-10-16 06:25 | P.MSEPDOC ---
Presenting Problems - Arrival Data Date of Arrival on Unit: 10/15/22 Time of Arrival on Unit: 18:10 Mode of Transport: Ambulatory - Complaint OB-Reason for Admission/Chief Complaint: Visual Disturbances Comment: patient presents to triage with complaints of blurry vision, back pain, and abdominal pain. Medical History - Information : 2 Para: 1 Term: 0 : 0 Abortions: Spontaneous or Elective: 0 Number of Living Children: 1 - Gestational Age Gestational Age by RAMON (wks/days): 33 Weeks and 1 Days Review of Systems - Review of Systems Constitutional: No problems Breast: No problems ENT: No problems Cardiovascular: No problems Respiratory: No problems Gastrointestinal: No problems Genitourinary: No problems Musculoskeletal: No problems Neurological: No problems Skin: No problems Vital Signs - Temperature Temperature: 96.7 F Temperature Source: Oral - Pulse Pulse Oximetery Pulse Rate: 93 Pulse Assessment Method: Pulse Oximetry - Respirations Respiratory Rate: 16 Oxygen Delivery Method: Room Air O2 Sat by Pulse Oximetry: 99 - Blood Pressure Right Arm Blood Pressure: 122/69 Blood Pressure Mean: 86 Blood Pressure Source: Automatic Cuff Medical Screen Scoring - Assessment - Baby A Baseline FHR: 125 Heart Rate - NICHD Category: Category I (Normal) NST: Reactive Maternal Triage Index - Stat/Priority 1 Stat Priority 1: No - Urgent/Priority 2 Urgent Priority 2: Yes Provider Notified: Lewis Oneal Provider Notified Time: 18:43 Criteria Met for Priority 2: patient presents to triage with complaints of blurry vision, back pain, and abdominal pain. Disposition - Disposition OB Disposition: Discharge to home I agree with the RN Medical Screening Exam: Yes Case reviewed; plan agreed upon as documented in EMR&OBIX.: Yes Diagnosis: RELATED CONDITIONS, UNSPECIFIED, THIRD TRIMESTER
== END 2022-10-15 19:12 ==
LOC: FBPOP 18:10
PROVIDERS: ATTEND Obstetrics & Gynecology
DX: O26.893 Other specified pregnancy related conditions, third trimester (principal); H53.8 Other visual disturbances; F17.200 Nicotine dependence, unspecified, uncomplicated; O99.333 Smoking (tobacco) complicating pregnancy, third trimester; Z3A.33 33 weeks gestation of pregnancy; Z79.82 Long term (current) use of aspirin; Z88.1 Allergy status to other antibiotic agents
CPT/HCPCS: 59025; 99213

== ENCOUNTER 2022-11-15 09:17 | Outpatient (CLI) | payer OTHER ==
[2022-11-15 10:25] LABS: Appearance,Urine Clear (Clear); Bilirubin,Urine Negative (Negative); Blood,Urine Negative (Negative); Color,Urine Yellow; Glucose,Urine (UA) Negative (Negative); Ketones,Urine 2+ (Negative); Leukocyte Esterase,Urine Negative (Negative); Nitrite,Urine Negative (Negative); Protein,Urine Trace (Negative); Urobilinogen,Urine <2.0 mg/dL (<2.0)
[2022-11-15] MEDS ORDERED: NALBUPHINE 10 MG/ML (10 ML MDV) IV PRN (10:50)
[2022-11-15] MEDS ORDERED: LACTATED RINGERS 1,000 ML IV ONE (11:00)
[2022-11-15 12:46] VITALS: BP 123/59; PULSE 98; RESP 18; TEMP 97.3
--- NOTE | 2022-11-16 18:06 | P.MSEPDOC ---
Presenting Problems - Arrival Data Date of Arrival on Unit: 11/15/22 Time of Arrival on Unit: 09:17 Mode of Transport: EMS - Complaint OB-Reason for Admission/Chief Complaint: Possible Onset of Labor Comment: pt arrived by EMS c/o contractions every 2 min and rating pain at 7/10 and higher with activity, pt arrived by EMS c/o contractions every 2 min and rating pain at 7/10 and higher with activity Medical History - Information : 2 Para: 1 Term: 1 : 0 Abortions: Spontaneous or Elective: 0 Number of Living Children: 1 - Gestational Age Gestational Age by RAMON (wks/days): 37 Weeks and 4 Days Review of Systems - Review of Systems Constitutional: No problems Breast: No problems ENT: No problems Cardiovascular: No problems Respiratory: No problems Gastrointestinal: No problems Genitourinary: No problems Musculoskeletal: No problems Neurological: No problems Skin: No problems Vital Signs - Temperature Temperature: 97.3 F Temperature Source: Axillary - Pulse Right Brachial Pulse Rate: 98 Pulse Assessment Method: Automatic Cuff - Respirations Respiratory Rate: 18 Oxygen Delivery Method: Room Air O2 Sat by Pulse Oximetry: 97 - Blood Pressure Right Arm Blood Pressure: 123/59 Blood Pressure Mean: 80 Blood Pressure Source: Automatic Cuff Medical Screen Scoring - Cervical Exam Dilation (cm): 1.5 Effacement (%): 50 Station: -2 Membranes: Intact - Uterine Contractions Intensity: Mild Resting: Soft to palpation - Assessment - Baby A Baseline FHR: 150 Heart Rate - NICHD Category: Category I (Normal) NST: Reactive Physician Notification - Physician Notified Physician Notified Date: 11/15/22 Physician Notified Time: 09:41 Physician: Emily Grissom Order Received: Yes - Notification Comment Comment: UA obtained, IVF and nubaine provided, pain decreased with nubaine, pt discharged home, she has a follow up appt in the office next Thurs Maternal Triage Index - Maternal Triage Index Presenting for scheduled procedure w/no complaint: No - Stat/Priority 1 Stat Priority 1: No - Urgent/Priority 2 Urgent Priority 2: No - Prompt/Priority 3 Prompt Priority 3: Yes Criteria Met for Priority 3: pt arrived by EMS c/o contractions every 2 min and rating pain at 7/10 and higher with activity, constant pelvic pain, pt arrived by EMS c/o contractions every 2 min and rating pain at 7/10 and higher with activity Disposition - Disposition OB Disposition: Triage, Discharge to home, Written follow up instructions reviewed Discharge Date: 11/15/22 Discharge Time: 12:15 I agree with the RN Medical Screening Exam: Yes Case reviewed; plan agreed upon as documented in EMR&OBIX.: Yes Diagnosis: FALSE LABOR AT OR AFTER 37 COMPLETED WEEKS OF GESTATION
== END 2022-11-15 12:15 | disposition home or self-care (01) ==
LOC: FBPOP 09:17
PROVIDERS: ATTEND Obstetrics & Gynecology
DX: O47.1 False labor at or after 37 completed weeks of gestation (principal); O99.333 Smoking (tobacco) complicating pregnancy, third trimester; F17.200 Nicotine dependence, unspecified, uncomplicated; Z3A.37 37 weeks gestation of pregnancy; Z88.1 Allergy status to other antibiotic agents
CPT/HCPCS: 59025; 99214; 96361; 96374; 81003; J2300

== ENCOUNTER 2022-11-19 10:34 | Emergency (ER) | payer OTHER ==
[2022-11-19 11:10] LABS: Basophils % (A) 0 %; Eosinophils # (A) 0.1 k/uL (0-0.7); Eosinophils % (A) 2 %; HCT 30.3 % (34.0-46.0); HGB 10.4 gm/dL (11.4-16.0); Lymphocytes # (A) 2.4 k/uL (1.0-4.8); Lymphocytes % (A) 26 %; MCH 33.2 pg (25.0-35.0); MCHC 34.4 g/dL (31.0-37.0); MCV 96.5 fL (80.0-100.0); Mean Platelet Volume 7.3; Monocytes # (A) 0.3 k/uL (0-1.0); Monocytes % (A) 3 %; Neutrophils # (A) 6.3 k/uL (1.3-7.7); Neutrophils % (A) 68 %; Platelet Count 289 k/uL (150-450); RBC 3.14 m/uL (3.80-5.40); RDW 13.7 % (11.5-15.5); WBC 9.2 k/uL (3.8-10.6)
[2022-11-19 11:17] LABS: Appearance,Urine Clear (Clear); Bilirubin,Urine Negative (Negative); Blood,Urine Large (Negative); Color,Urine Colorless; Glucose,Urine (UA) Negative (Negative); Ketones,Urine Negative (Negative); Leukocyte Esterase,Urine Negative (Negative); Mucus,Urine Rare /hpf; Nitrite,Urine Negative (Negative); Protein,Urine Negative (Negative); RBC,Urine 8 /hpf (0-5); Specific Gravity,Urine 1.009 (1.001-1.035); Squamous Epithelial Cell,Urine 1 /hpf (0-4); Urobilinogen,Urine <2.0 mg/dL (<2.0); WBC,Urine 2 /hpf (0-5)
[2022-11-19 11:25] LABS: ALT 29 U/L (4-34); AST 36 U/L (14-36); African American GFR (CKD) >90 (>60 ml/min/1.73 sqM); Albumin 2.9 g/dL (3.5-5.0); Alkaline Phosphatase 125 U/L (38-126); Amylase 63 U/L (30-110); Anion Gap 3 mmol/L; Blood Urea Nitrogen 6 mg/dL (7-17); Calcium 9.1 mg/dL (8.4-10.2); Carbon Dioxide 25 mmol/L (22-30); Chloride 108 mmol/L (98-107); Glucose 86 mg/dL (74-99); Lipase 110 U/L (23-300); Non-African American GFR(CKD) >90 (>60 ml/min/1.73 sqM); Potassium 4.6 mmol/L (3.5-5.1); Sodium 136 mmol/L (137-145); Total Bilirubin 0.4 mg/dL (0.2-1.3); Total Protein 5.5 g/dL (6.3-8.2)
--- NOTE | 2022-11-19 14:35 | US ---
EXAMINATION TYPE: US abdomen limited DATE OF EXAM: 11/19/2022 COMPARISON: NONE CLINICAL INDICATION: Female, 31 years old with history of abd pain - epigastric; Epigastric abdominal pain. Patient had vaginal delivery on 11/16/2022, TECHNIQUE: Multiple sonographic images of the right upper quadrant are obtained. FINDINGS: EXAM MEASUREMENTS: Liver Length: 14.2 cm Gallbladder Wall: 0.21 cm CBD: 0.27 cm Right Kidney: 12.6 x 5.8 x 5.1 cm BOOTH MANAGER NOTES: Limited due to gas. Pancreas: Tail was not well seen. Liver: Appears wnl Gallbladder: Limited, appears partially contracted. Evidence for sonographic [place]olejo's sign: No CBD: Appears wnl Right Kidney: Slightly enlarged. Renal pelvis appears dilated, patient just voided immediately befo re ultrasound. IMPRESSION: 1. Fullness right renal collecting system with a few hyperechoic foci noted could reflect nephrolithi asis.
[2022-11-19] MEDS ORDERED: KETOROLAC 15 MG/ML 1 ML VIAL IVP STA (14:46)
[2022-11-19 14:50] VITALS: RESP 18
--- NOTE | 2022-11-19 15:32 | ED ---
Abdominal Pain HPI - General Chief Complaint: Abdominal Pain Stated Complaint: Abd Pain Time Seen by Provider: 11/19/22 11:00 Source: patient Mode of arrival: ambulatory Limitations: no limitations - History of Present Illness Initial Comments: 31-year-old female presents emergency room reporting abdominal pain patient states that she has had right upper quadrant abdominal pain for the past day. She is status post vaginal delivery on Thursday the . Her OB is Dr. Grissom. She denies lower abdominal pain and no changes in her urination. No dysuria, hematuria or difficulty voiding. Denies diarrhea, constipation, black or bloody stools. Continues to have some vaginal bleeding however states it has not changed in its color or flow. She denies any discharge. No diarrhea, constant, black or bloody stools. No fevers. No other alleviating, precipitating or modifying factors - Related Data Home Medications Medication Instructions Recorded Confirmed Vit No.180/Iron/Folic 1 each PO DAILY 11/10/20 10/15/22 [ Plus Vitamin-Mineral] Albuterol Inhaler [Ventolin Hfa 1 puff DAILY 10/15/22 10/15/22 Inhaler] Ascorbic Acid [Vitamin C] 1 tab DAILY 10/15/22 10/15/22 Cholecalciferol (Vitamin D3) 1 tab DAILY 10/15/22 10/15/22 [Vitamin D3] DULoxetine HCL [Cymbalta] 60 mg PO DAILY 10/15/22 10/15/22 Folic Acid 0.8 mg PO DAILY 10/15/22 10/15/22 Loratadine 10 mg PO DAILY 10/15/22 10/15/22 Magnesium Citrate and Oxide 1 tab PO DAILY 10/15/22 10/15/22 [Magnesium] Previous Rx's Medication Instructions Recorded Ibuprofen [Motrin] 600 mg PO Q6HR PRN #60 tab 11/17/22 Acetaminophen-Codeine 300-30mg 1 tab PO Q6HR PRN #12 tablet 11/19/22 [Tylenol #3] Allergies Allergy/AdvReac Type Severity Reaction Status Date / Time ciprofloxacin [From Cipro] Allergy Rash/Hives Verified 11/19/22 10:40 azithromycin [From Zithromax] AdvReac Rapid Verified 11/19/22 10:40 Heart Rate Review of Systems ROS Statement: Those systems with pertinent positive or pertinent negative responses have been documented in the HPI. ROS Other: All systems not noted in ROS Statement are negative. Past Medical History Past Medical History: Asthma, GERD/Reflux Additional Past Medical History / Comment(s): PCOS, MTHFR, endometriosis, history of herniated disc in her back History of Any Multi-Drug Resistant Organisms: None Reported Additional Past Surgical History / Comment(s): Lumbar Fusion, laparoscopy with lysis of adhesions and ablation of endometriosis in 2019, dilation and curettage with hysteroscopy and polyp removal in 2019, several other dilation and curettage. Past Anesthesia/Blood Transfusion Reactions: No Reported Reaction Past Psychological History: ADD/ADHD, Anxiety, Depression Smoking Status: Never smoker Past Alcohol Use History: None Reported Past Drug Use History: None Reported - Past Family History Mother Family Medical History: Coronary Artery Disease (CAD), Hyperlipidemia, Hypertension Additional Family Medical History / Comment(s): Depression Father Family Medical History: Hyperlipidemia, Hypertension General Exam Limitations: no limitations General appearance: alert, in no apparent distress Head exam: Present: atraumatic, normocephalic, normal inspection Eye exam: Present: normal appearance, PERRL, EOMI. Absent: scleral icterus, conjunctival injection, periorbital swelling ENT exam: Present: normal exam, mucous membranes moist Neck exam: Present: normal inspection. Absent: meningismus, lymphadenopathy Respiratory exam: Present: normal lung sounds bilaterally. Absent: respiratory distress, wheezes, rales, rhonchi, stridor Cardiovascular Exam: Present: regular rate, normal rhythm, normal heart sounds. Absent: systolic murmur, diastolic murmur, rubs, gallop, clicks GI/Abdominal exam: Present: soft, tenderness (Right upper quadrant), normal bowel sounds. Absent: distended, guarding, rebound, rigid Extremities exam: Present: normal inspection, full ROM, normal capillary refill. Absent: tenderness, pedal edema, joint swelling, calf tenderness Back exam: Present: normal inspection Neurological exam: Present: alert, oriented X3, CN II-XII intact Psychiatric exam: Present: normal affect, normal mood Skin exam: Present: warm, dry, intact, normal color. Absent: rash Course Vital Signs 11/19/22 11/19/22 11/19/22 10:38 14:42 16:59 Temperature 98.2 F 97.7 F 98.2 F Pulse Rate 79 83 72 Respiratory 20 18 18 Rate Blood Pressure 131/88 110/73 112/75 O2 Sat by Pulse 99 100 100 Oximetry Medical Decision Making - Medical Decision Making Was pt. sent in by a medical professional or institution (SCOUT Schilling, VAT HOUSE SUPERVISOR, urgent care, hospital, or [facility]...) When possible be specific @ -No Did you speak to anyone other than the patient for history (EMS, parent, family, police, friend...)? What history was obtained from this source @ -No Did you review nursing and triage notes (agree or disagree)? Why? @ -I reviewed and agree with nursing and triage notes Were old charts reviewed (outside hosp., previous admission, EMS record, old EKG, old radiological studies, urgent care reports/EKG's, [facility] records)? Report findings @ -I reviewed the patient's birthing summary Differential Diagnosis (chest pain, altered mental status, abdominal pain women, abdominal pain men, vaginal bleeding, weakness, fever, dyspnea, syncope, headache, dizziness, GI bleed, back pain, seizure, CVA, palpatations, mental health, musculoskeletal)? @ -Differential Abdominal Pain Women: Appendicitis, Cholecystitis, diverticulosis, ischemic bowel, pancreatitis, hepatitis, UTI, gastroenteritis, AAA, incarcerated hernia, bowel obstruction, constipation, inflammatory bowel, hepatitis, peptic ulcer disease, splenic infarction, perforated viscus, vulvitis, ovarian torsion, PID, kidney stone, placenta abruption, this is not meant to be an all-inclusive list EKG interpreted by me (3pts min.). @ -Not completed X-rays interpreted by me (1pt min.). @ -None done CT interpreted by me (1pt min.). @ -Yes and demonstrates some hydro-on the right U/S interpreted by me (1pt. min.). @ -Yes and demonstrates no acute intra-abdominal process What testing was considered but not performed or refused? (CT, X-rays, U/S, labs )? Why? @ -None What meds were considered but not given or refused? Why? @ -None Did you discuss the management of the patient with other professionals (professionals i.e. SCOUT Schilling, VAT HOUSE SUPERVISOR, lab, RT, psych nurse, social sciences professor, polymerization helper, teacher, financial aid officer, binder caser)? Give summary @ -No Was smoking cessation discussed for >3mins.? @ -No Was critical care preformed (if so, how long)? @ -No Were there social determinants of health that impacted care today? How? (Homelessness, low income, unemployed, alcoholism, drug addiction, transportation, low edu. Level, literacy, decrease access to med. care, longterm, rehab)? @ -No Was there de-escalation of care discussed even if they declined (Discuss DNR or withdrawal of care, Hospice)? DNR status @ -No What co-morbidities impacted this encounter? (DM, HTN, Smoking, COPD, CAD, Cancer, CVA, ARF, Chemo, Hep., AIDS, mental health diagnosis, sleep apnea, morbid obesity)? @ -None Was patient admitted / discharged? Hospital course, mention meds given and route, prescriptions, significant lab abnormalities, going to OR and other pertinent info. @ -Upon arrival patient was placed in the hallway 23. History and physical exam was performed. IV access was established. Laboratory studies were conducted. Patient does go for ultrasound which demonstrates mild [place]. I did follow this up with a CT which failed to demonstrate any signs of obstruction. She does have an enlarged uterus which is expected due to state. Patient's will be discharged home at this time. The diagnosis, differential and treatment options were discussed. She needs to follow up with her primary care doctor for further evaluation of her symptoms. May need a HIDA scan. Return for any new or worsening symptoms. Patient agreeable discharged in stable condition Undiagnosed new problem with uncertain prognosis? @ -yes Drug Therapy requiring intensive monitoring for toxicity (Heparin, Nitro, Insulin, Cardizem)? @ -No Were any procedures done? @ -No Diagnosis/symptom? @ -Acute right upper quadrant abdominal pain, status post vaginal delivery Acute, or Chronic, or Acute on Chronic? @ -Acute Uncomplicated (without systemic symptoms) or Complicated (systemic symptoms)? @ -complicated Side effects of treatment? @ -No Exacrbtion, Progression, or Severe Exacerbation? @ -No Pose athreat to life or bodily function? How? (Chest pain, USA, MS, pneumonia, PE, COPD, DKA, ARF, appy, cholecystitis, CVA, Diverticulitis, Homicidal, Suicidal, threat to staff... and all critical care pts) @ -No - Lab Data Result diagrams: 11/19/22 10:56 11/19/22 10:56 Lab Results 11/19/22 11/19/22 11/19/22 Range/Units 10:56 10:56 10:56 WBC 9.2 (3.8-10.6) k/uL RBC 3.14 L (3.80-5.40) m/uL Hgb 10.4 L (11.4-16.0) gm/dL Hct 30.3 L (34.0-46.0) % MCV 96.5 (80.0-100.0) fL MCH 33.2 (25.0-35.0) pg MCHC 34.4 (31.0-37.0) g/dL RDW 13.7 (11.5-15.5) % Plt Count 289 (150-450) k/uL MPV 7.3 Neutrophils % 68 % Lymphocytes % 26 % Monocytes % 3 % Eosinophils % 2 % Basophils % 0 % Neutrophils # 6.3 (1.3-7.7) k/uL Lymphocytes # 2.4 (1.0-4.8) k/uL Monocytes # 0.3 (0-1.0) k/uL Eosinophils # 0.1 (0-0.7) k/uL Basophils # 0.0 (0-0.2) k/uL Sodium 136 L (137-145) mmol/L Potassium 4.6 (3.5-5.1) mmol/L Chloride 108 H (98-107) mmol/L Carbon Dioxide 25 (22-30) mmol/L Anion Gap 3 mmol/L BUN 6 L (7-17) mg/dL Creatinine 0.55 (0.52-1.04) mg/dL Est GFR (CKD-EPI)AfAm >90 (>60 ml/min/1.73 sqM) Est GFR (CKD-EPI)NonAf >90 (>60 ml/min/1.73 sqM) Glucose 86 (74-99) mg/dL Plasma Lactic Acid Neo 1.1 (0.7-2.0) mmol/L Calcium 9.1 (8.4-10.2) mg/dL Total Bilirubin 0.4 (0.2-1.3) mg/dL AST 36 (14-36) U/L ALT 29 (4-34) U/L Alkaline Phosphatase 125 (38-126) U/L Total Protein 5.5 L (6.3-8.2) g/dL Albumin 2.9 L (3.5-5.0) g/dL Amylase 63 (30-110) U/L Lipase 110 (23-300) U/L Urine Color Urine Appearance (Clear) Urine pH (5.0-8.0) Ur Specific [place] (1.001-1.035) Urine Protein (Negative) Urine Glucose (UA) (Negative) Urine Ketones (Negative) Urine Blood (Negative) Urine Nitrite (Negative) Urine Bilirubin (Negative) Urine Urobilinogen (<2.0) mg/dL Ur Leukocyte Esterase (Negative) Urine RBC (0-5) /hpf Urine WBC (0-5) /hpf Ur Squamous Epith Cells (0-4) /hpf Urine Mucus (None) /hpf 11/19/22 Range/Units 10:56 WBC (3.8-10.6) k/uL RBC (3.80-5.40) m/uL Hgb (11.4-16.0) gm/dL Hct (34.0-46.0) % MCV (80.0-100.0) fL MCH (25.0-35.0) pg MCHC (31.0-37.0) g/dL RDW (11.5-15.5) % Plt Count (150-450) k/uL MPV Neutrophils % % Lymphocytes % % Monocytes % % Eosinophils % % Basophils % % Neutrophils # (1.3-7.7) k/uL Lymphocytes # (1.0-4.8) k/uL Monocytes # (0-1.0) k/uL Eosinophils # (0-0.7) k/uL Basophils # (0-0.2) k/uL Sodium (137-145) mmol/L Potassium (3.5-5.1) mmol/L Chloride (98-107) mmol/L Carbon Dioxide (22-30) mmol/L Anion Gap mmol/L BUN (7-17) mg/dL Creatinine (0.52-1.04) mg/dL Est GFR (CKD-EPI)AfAm (>60 ml/min/1.73 sqM) Est GFR (CKD-EPI)NonAf (>60 ml/min/1.73 sqM) Glucose (74-99) mg/dL Plasma Lactic Acid Neo (0.7-2.0) mmol/L Calcium (8.4-10.2) mg/dL Total Bilirubin (0.2-1.3) mg/dL AST (14-36) U/L ALT (4-34) U/L Alkaline Phosphatase (38-126) U/L Total Protein (6.3-8.2) g/dL Albumin (3.5-5.0) g/dL Amylase (30-110) U/L Lipase (23-300) U/L Urine Color Colorless Urine Appearance Clear (Clear) Urine pH 6.0 (5.0-8.0) Ur Specific [place] 1.009 (1.001-1.035) Urine Protein Negative (Negative) Urine Glucose (UA) Negative (Negative) Urine Ketones Negative (Negative) Urine Blood Large H (Negative) Urine Nitrite Negative (Negative) Urine Bilirubin Negative (Negative) Urine Urobilinogen <2.0 (<2.0) mg/dL Ur Leukocyte Esterase Negative (Negative) Urine RBC 8 H (0-5) /hpf Urine WBC 2 (0-5) /hpf Ur Squamous Epith Cells 1 (0-4) /hpf Urine Mucus Rare H (None) /hpf Disposition Clinical Impression: Epigastric pain Disposition: HOME SELF-CARE Condition: Stable Instructions (If sedation given, give patient instructions): Abdominal Pain (ED) Additional Instructions: I recommended further testing to include a HIDA scan. Take pain medications as needed and follow-up with your doctor Prescriptions: Acetaminophen-Codeine 300-30mg [Tylenol #3] 1 tab PO Q6HR PRN #12 tablet PRN Reason: pain Is patient prescribed a controlled substance at d/c from ED?: Yes When asked, does pt state using other controlled substances?: No If prescribed controlled substance>3 days was MAPS reviewed?: Prescribed <3 Days If opioid is for acute pain is fill amount 7 days or less?: Yes Referrals: Bentley Harrison MD [Primary Care Provider] - 1-2 days Time of Disposition: 16:44
--- NOTE | 2022-11-19 15:53 | CT ---
EXAMINATION TYPE: CT abdomen pelvis w con DATE OF EXAM: 11/19/2022 COMPARISON: None HISTORY: mid-rt side abdominal pain. vaginal 11.16.22 CT DLP: 1182.1 mGycm CONTRAST: CT scan of the abdomen and pelvis is performed without Oral Contrast and with IV Contrast, patient in jected with 100ml mL of Isovue 300. FINDINGS: LUNG BASES-: No visible nodule. No infiltrate. LIVER/GB: No calcified gallstones. No space occupying hepatic lesion. Biliary tree is of normal ca liber. PANCREAS: No inflammation. No distinct mass. SPLEEN: No splenic enlargement. No lesion seen. ADRENALS: No nodule. No thickening. KIDNEYS/BLADDER: There is mild fullness of the right renal collecting system. No nephrolithiasis. No distinct renal mass. Urinary bladder grossly unremarkable. BOWEL: Normal appendix. Normal bowel caliber. No inflammation. GENITAL ORGANS: There is diffuse enlargement of the uterus with hypervascularity compatible with the patient's state . No new collections seen. Ovaries poorly visualized. LYMPH NODES: No greater than 1cm abdominal or pelvic lymph nodes are appreciated. AORTA: No significant abnormality. OSSEOUS STRUCTURES: No significant abnormality is seen. OTHER: No significant additional abnormality is seen. IMPRESSION: 1. There is diffuse enlargement of the uterus with hypervascularity compatible with the patient's pos tpartum state . No new collections seen. 2.There is mild fullness of the right renal collecting system.
[2022-11-19 17:04] VITALS: BP 112/75; PULSE 72; TEMP 98.2
== END 2022-11-19 17:00 | disposition home or self-care (01) ==
LOC: EC 10:34
DX: O90.89 Other complications of the puerperium, not elsewhere classified (principal); R10.13 Epigastric pain; R10.11 Right upper quadrant pain; O99.53 Diseases of the respiratory system complicating the puerperium; J45.909 Unspecified asthma, uncomplicated; O99.345 Other mental disorders complicating the puerperium; F53.0 Postpartum depression; Z79.899 Other long term (current) drug therapy; Z88.1 Allergy status to other antibiotic agents
CPT/HCPCS: 36415; 80053; 82150; 83605; 83690; 85025; 81001; 76705; 74177; 99285; 96374; J1885; Q9967

== ENCOUNTER → 2023-02-07 | Outpatient (CLI) | payer OTHER ==
--- NOTE | 2023-02-07 16:04 | MR ---
EXAMINATION TYPE: MR brain wo/w con DATE OF EXAM: 02/07/2023 COMPARISON: None HISTORY: Vision changes. TECHNIQUE: Multiplanar, multisequence images of the brain and brainstem is performed without and with IV contras t, utilizing 8.5 mL intravenous Gadobutrol . Findings: On the T1-weighted sagittal images, the midline structures including the craniovertebral junction rel ationships are normal. The ventricles, basal cisterns and sulci over the convexities are within normal limits and there is n o mass effect or shift of midline structures. No abnormal signal intensity is seen throughout the brain parenchyma. Based on diffusion-weighted imaging, there is no diffusion restriction or acute ischemic event. The posterior fossa including the brainstem, fourth ventricle and cerebellar pontine angles appear no rmal. Following contrast administration, there is no pathological enhancement throughout the brain parenchy ma Intraorbital contents appear normal and symmetric. Visualized paranasal sinuses and mastoid air cells are well aerated FINDINGS: IMPRESSION: No significant abnormality seen.
== END | disposition home or self-care (01) ==
LOC: RADMRIMAIN 15:05
PROVIDERS: ATTEND Family Medicine
DX: H53.9 Unspecified visual disturbance (principal)
CPT/HCPCS: 70553; A9585